=== PATIENT | female | born 1955 | race Caucasian/White ===

== ENCOUNTER → 2024-02-24 15:43 | Outpatient (REF) | payer MEDICARE, OTHER, SELFPAY | LOC: RCS 15:43 | PROVIDERS: ATTENDING PHYSICIAN Internal Medicine | DX: I35.0 Nonrheumatic aortic (valve) stenosis (principal) | CPT/HCPCS: 93306 ==

== ENCOUNTER → 2024-04-29 06:25 | Day surgery (SDC) | payer MEDICARE, OTHER, SELFPAY | LOC: GI 06:25 | PROVIDERS: ATTENDING PHYSICIAN Internal Medicine | DX: Z12.11 Encounter for screening for malignant neoplasm of colon (principal); K64.8 Other hemorrhoids; K57.30 Diverticulosis of large intestine without perforation or abscess without bleeding; K58.9 Irritable bowel syndrome, unspecified; D12.5 Benign neoplasm of sigmoid colon; D12.7 Benign neoplasm of rectosigmoid junction | CPT/HCPCS: 45385; 88305 ==

== ENCOUNTER 2024-05-14 13:32 | Emergency (ER) | payer MEDICARE, OTHER, SELFPAY ==
[2024-05-14 13:35] VITALS: BP 154/75
--- NOTE | 2024-05-14 13:46 | ED.GENMED ---
History of Present Illness
General
Chief Complaint: Heart Rate Problem
Source: patient
Exam Limitations: none
Time Seen by Provider: 05/14/24 13:43
Nursing documentation reviewed up to this point in time: agreed with
History of Present Illness
History of Present Illness:
Patient is a 6-year-old female who presents to the ER for evaluation. Patient reports prior to arrival she was in her bathroom putting things away and suddenly felt lightheaded and felt weird in her chest. She said she felt wrong but not
necessarily had palpitations just felt weird heart beat. She denies any actual pain shortness of breath. She has a history of left bundle branch block. She recently had an echo ordered by her family doctor.
Review of Systems
Review of Systems
Allergies reviewed?: Yes
All Other Systems: ROS reviewed and negative except as documented in HPI and ROS
Respiratory: Reports no symptoms; Denies trouble breathing
Cardiac: Reports palpitations; Denies chest pain or diaphoresis
Phy Exam
General Physical Exam
General Presentation: no apparent distress
General age: appears stated age
General Skin: warm and dry
General Habitus: normal
General Mental: alert
General Hydration: appears well hydrated
Cardiovascular Exam
Cardiovascular Exam: regular rate/rhythm, no murmur and normal peripheral pulses
Pulmonary Exam
Pulmonary Exam: lungs clear and no respiratory distress
Neurological Exam
Neurological Exam: alert and oriented x3
Musculoskeletal Exam
Musculoskeletal Exam: full ROM
Skin Exam
Skin Exam: normal color and warm/dry
Psychiatric Exam
Psychiatric Exam: normal mood/affect
Course
Orders/Labs/Results
Orders:
Orders
05/14/24 13:33
EKG [Electrocardiogram (*1)] Urgent
Reason for Study: Palpitations
EKG- Treatment ONCE
05/14/24 14:00
Cardiac Monitoring- Treatment ONCE
IV Insert/Care/Rem.- Treatment PRN
05/14/24 14:16
Complete Blood Count/With Diff Urgent
Comprehensive Metabolic Panel Urgent
TSH Urgent
Troponin I Urgent
05/14/24 14:32
Chest [CR Chest - 2 Views ] Urgent
Comment:
Reason For Exam: palpitations
Abnormal Lab Results
05/14/24
14:16
Immature Gran % 0.6 H %
(0-0.5)
Glucose 125 H mg/dl
(70-99)
05/14/24 14:16
05/14/24 14:16
Vital Signs
Initial and Last Documented VS:
Initial Vital Signs
Temp Pulse Resp BP Pulse Ox
98.2 F 90 16 154/75 98
05/14/24 13:35 05/14/24 13:35 05/14/24 13:35 05/14/24 13:35 05/14/24 13:35
Last Documented Vital Signs
Temp Pulse Resp BP Pulse Ox
98.2 F 71 13 142/69 98
05/14/24 13:35 05/14/24 15:30 05/14/24 15:30 05/14/24 15:00 05/14/24 15:30
Director Cardiology consulted with Physician
Director Cardiology consulted with physician?: Yes
Name of Physician Consulted: donald
MDM/Problems Addressed
Differential Diagnosis Includes:
Not limited to palpitations tachycardia arrhythmia
MDM/Problems Addressed:
Patient is a 69year-old female with history of chronic left bundle branch block ,hypertension presents to the ER for intermittent palpitations, lightheadedness. She presents awake alert no acute distress denies any associated chest pain shortness
of breath. She has not had any symptoms urine been in normal sinus rhythm. Cardiac troponin negative. All other labs are unremarkable. Mildly hypertensive however did not take her medications today. No headache. I did reach out to cardiology
and patient already has an appointment for couple weeks to further evaluate this. I did offer patient a Holter monitor here however she is going away in 2 days for the next week and wishes to do everything when she gets back. I did recommend that
she go to the nearest ER if any worsening of symptoms or concerning symptoms. I did advise her to stay well-hydrated avoid caffeine chocolate alcohol.
Chronic conditions affecting care:
Hypertension chronic left bundle branch block
*Radiology
Radiology exam reviewed: radiology read reviewed
*Pulse Oximetry
Patient hypoxic: no
*EKG
Interpreted by ED Provider?: Yes
Interpretation: abnormal
Comparison EKG: no changes
Heart Rate: 89
Rate: normal
Rhythm: sinus
Ischemia: other (pac)
*Critical Care Note
Total Time (30-74mins, 75-104mins- exclusive of procedures): Not Applicable
Data Reviewed
Review of Other/Old Records Reveals: Other (Recent echo reviewed from February 2024 shows normal biventricular size and systolic function abnormal septal motion consistent with left bundle branch block LV ejection fraction 69% mild aortic stenosis)
ED Attending Note
-
Portions of this chart may have been created with voice recognition software.� Occasional wrong word or��sound alike� substitutions may have occurred due to the inherent limitations of voice recognition software.
Discharge Plan
Departure
Patient Disposition: Home (Routine Discharge)
Date of Disposition: 05/14/24
Time of Disposition: 15:35
Patient with high blood pressure during this ER visit?: Yes
Condition: Fair
Covid-19: Not Applicable
Discharge Problem:
Palpitations
Instructions: Palpitations (DC), BLOOD PRESSURE
Referrals:
Anup Perrin MD [Active] -
Activity Restrictions/Additional Instructions:
As discussed stay well-hydrated. Follow-up with cardiology as scheduled. Avoid caffeine alcohol chocolate until seen and evaluated. Return if any worsening of symptoms including worsening palpitations dizziness lightness chest pain shortness of
breath. Go to the nearest ER if any concerns.
Interventions
Interventions:
*Risk Screen - Suicide Last Done: 05/14/24 13:35
*General Assessment Last Done: 05/14/24 13:35
*Neglect/Abuse Screening Last Done: 05/14/24 13:35
ED- Fall Risk Assessment Last Done: 05/14/24 14:49
ED- Cardiac Assessment Last Done: 05/14/24 14:49
ED- Pulmonary Assessment Last Done: 05/14/24 14:49
Discharge Date and Time
Print Language: ROMANSH
[2024-05-14 14:05] VITALS: BP 168/70
[2024-05-14 14:32] LABS: % Basophils 0.9 % (0-2); % Eosinophils 1.9 % (0-6); % Immature Granulocytes 0.6 % (0-0.5); % Lymphocytes 28.6 % (20.5-51.1); % Monocytes 6.7 % (1.7-9.3); % Neutrophils 61.3 % (42.2-75.2); Absolute Basophils 0.1 10^3/uL (0-0.2); Absolute Eosinophils 0.1 10^3/uL (0-0.7); Absolute Monocytes 0.5 10^3/uL (0.1-0.6); Absolute Neutrophils 4.2 10^3/uL (1.4-6.5); Hematocrit 40.6 % (37.0-47.0); Hemoglobin 13.6 g/dL (12.0-16.0); Mean Corp Hgb Conc. 33.5 g/dL (33.0-37.0); Mean Corpuscular Hgb 30.6 pg (27.0-31.0); Mean Corpuscular Volume 91.2 fL (81.0-99.0); Mean Platelet Volume 9.7 fL (7.4-10.4); Nucleated Red Blood Cells % 0 %; Platelet Count 269 10^3/uL (130-400); Red Blood Cell Count 4.45 10^6/uL (4.20-5.40); Red Cell Dist. Width 13.5 % (11.5-14.5); White Blood Cell Count 6.9 10^3/uL (4.8-10.8)
[2024-05-14 14:50] VITALS: BMI 34.2
[2024-05-14 14:51] LABS: ALT (SGPT) 22 U/L (0-35); AST (SGOT) 25 U/L (14-36); Albumin 4.3 g/dl (3.5-5.0); Alkaline Phosphatase 75 U/L (38-126); Blood Urea Nitrogen 16 mg/dl (7-17); Calcium 9.5 mg/dl (8.4-10.2); Carbon Dioxide 28 mmol/L (22-30); Chloride 105 mmol/L (98-107); Estimated Creatinine Clearance 87 ml/min; Glucose 125 mg/dl (70-99); Sodium 141 mmol/L (135-145); Total Bilirubin 0.9 mg/dl (0.2-1.3); Total Protein 6.6 g/dl (6.3-8.2); eGFR > 60.00
[2024-05-14 15:00] VITALS: BP 142/69
[2024-05-14 15:06] LABS: Troponin I < 0.012 ng/ml
[2024-05-14 16:24] LABS: TSH 1.08 uIU/ml (0.47-4.68)
== END 2024-05-14 16:43 | disposition home or self-care (01) ==
LOC: EMR 13:32
PROVIDERS: Nurse Practitioner; EMERGENCY PHYSICIAN Emergency Medicine; FAMILY PHYSICIAN Internal Medicine
DX: R00.2 Palpitations (principal); I44.7 Left bundle-branch block, unspecified; I10 Essential (primary) hypertension
CPT/HCPCS: 99283; 71046; 80053; 84443; 84484; 85025; 93005

== ENCOUNTER → 2024-09-02 14:35 | Outpatient (REF) | payer MEDICARE, OTHER, SELFPAY | LOC: WDC 14:35 | PROVIDERS: ATTENDING PHYSICIAN Obstetrics & Gynecology; FAMILY PHYSICIAN Internal Medicine | DX: Z12.31 Encounter for screening mammogram for malignant neoplasm of breast (principal) | CPT/HCPCS: 77063; 77067 ==

== ENCOUNTER → 2024-11-17 14:51 | Outpatient (REF) | payer MEDICARE, OTHER, SELFPAY ==
[2024-11-17 15:14] LABS: % Basophils 0.4 % (0-2); % Eosinophils 1.1 % (0-6); % Immature Granulocytes 0.3 % (0-0.5); % Lymphocytes 30.1 % (20.5-51.1); % Monocytes 7.5 % (1.7-9.3); % Neutrophils 60.6 % (42.2-75.2); Absolute Eosinophils 0.1 10^3/uL (0-0.7); Absolute Lymphocytes 2.1 10^3/uL (1.2-3.4); Absolute Monocytes 0.5 10^3/uL (0.1-0.6); Absolute Neutrophils 4.3 10^3/uL (1.4-6.5); Hematocrit 40.7 % (37.0-47.0); Hemoglobin 13.4 g/dL (12.0-16.0); Mean Corp Hgb Conc. 32.9 g/dL (33.0-37.0); Mean Corpuscular Hgb 30.8 pg (27.0-31.0); Mean Corpuscular Volume 93.6 fL (81.0-99.0); Mean Platelet Volume 10.3 fL (7.4-10.4); Nucleated Red Blood Cells % 0 %; Platelet Count 279 10^3/uL (130-400); Red Blood Cell Count 4.35 10^6/uL (4.20-5.40); Red Cell Dist. Width 14.1 % (11.5-14.5); White Blood Cell Count 7.1 10^3/uL (4.8-10.8)
[2024-11-17 15:32] LABS: ALT (SGPT) 22 U/L (0-35); AST (SGOT) 23 U/L (14-36); Albumin 4.3 g/dl (3.5-5.0); Alkaline Phosphatase 70 U/L (38-126); Blood Urea Nitrogen 17 mg/dl (7-17); Carbon Dioxide 28 mmol/L (22-30); Chloride 105 mmol/L (98-107); Glucose 104 mg/dl (70-99); HDL Cholesterol 85 mg/dl; LDL Cholesterol, Calculated 72 mg/dl; Potassium 4.8 mmol/L (3.5-5.1); Sodium 139 mmol/L (135-145); Total Bilirubin 1.2 mg/dl (0.2-1.3); Total Cholesterol 168 mg/dl (50-199); Total Protein 6.6 g/dl (6.3-8.2); Triglyceride 58 mg/dl (10-149); Very Low Density Lipoprotein 11 mg/dl (0-30); eGFR > 60.00
[2024-11-18 13:53] LABS: Glycohemoglobin (HgbA1c) 5.2 % (4.0-5.6)
== END ==
LOC: REG 14:51
PROVIDERS: ATTENDING PHYSICIAN Hospitalist
DX: E78.5 Hyperlipidemia, unspecified (principal); I10 Essential (primary) hypertension; Z00.00 Encounter for general adult medical examination without abnormal findings; R10.12 Left upper quadrant pain; R73.01 Impaired fasting glucose
CPT/HCPCS: 36415; 80053; 80061; 83036; 85025

== ENCOUNTER → 2024-11-18 11:03 | Outpatient (REF) | payer MEDICARE, OTHER, SELFPAY | LOC: RAD 11:03 | PROVIDERS: ATTENDING PHYSICIAN Hospitalist; REFERRING PHYSICIAN Internal Medicine | DX: R10.12 Left upper quadrant pain (principal) | CPT/HCPCS: 74177; Q9967 ==

== ENCOUNTER → 2024-12-10 08:03 | Outpatient (REF) | payer MEDICARE, OTHER, SELFPAY | LOC: HWRAD 08:03 | PROVIDERS: ATTENDING PHYSICIAN Hospitalist; FAMILY PHYSICIAN Internal Medicine | DX: R10.9 Unspecified abdominal pain (principal) | CPT/HCPCS: 76830; 76856 ==